=== PATIENT | female | born 1990 | race African-American/Black ===

== ENCOUNTER 2018-10-21 18:06 | Emergency (ER) | payer OTHER ==
--- OUTSIDE RECORDS SUMMARY | 2018-10-21 18:35 | XMS REPORT | Continuity of Care Document ---
:1990 External Reference #:[id number] Author Name Lucinda Blanco FNP Address [address] [place] [id number] Care Team Providers Name Role Phone Lucinda Blanco CHILD CARE ASSISTANT - Nurse Care Team Information Life Skills Consultant Practitioner Problems Active Problems Provider Date Intrinsic asthma without status Teresa Alberts, CHILD CARE ASSISTANT Onset: 06/29/2012 asthmaticus Hyperlipidemia Laurie Henderson [facility] Onset: 11/29/2011 Obesity Erlinda Llamas M.D. 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/2014 Note: Triage: 05/11/16 - Fyi Missed Appt's S/P adrenal adenoma resection 06/02 Social History Type Date Description Comments Sex Unknown Tobacco Use Start: Unknown Never Smoked Cigarettes ETOH Use Occasionally consumes alcohol Tobacco Use Start: Unknown Patient has never smoked Recreational Drug Use Denies Drug Use Smoking Status Reviewed: 09/26/18 Patient has never smoked Allergies, Adverse Reactions, Alerts Active Allergies Reaction Severity Comments Date Amoxicillin Medications Active Medications SIG Qnty Indications Ordering Date Provider Symbicort 2 puffs inhaled 6.900gm J45.909 Guy Daniel MD 03/26/2018 twice a day as 80-4.5mcg/Act directed Aerosol Ventolin HFA 2 puffs by mouth 18gm Catrachita Michelle, 06/29/2017 every 4 hours as PNP-BC, EMERGENCY MEDICAL TECHNICIAN BASIC, 108(90Base) mcg/Act needed Ibclc Aerosol Albuterol Sulfate nebulized every 6 Unknown hours as needed (2.5mg/3ML) 0.083% Nebulizer History Medications Doxycycline Hyclate 1 tab ( or 20tabs J01.90 Lucinda Blanco, 2018 - capsule ) by [facility] 09/11/2018 100mg Tablets mouth twice a day Loratadine 1 by mouth 30tabs J01.90 Lucinda Blanco, 08/28/2018 - 10mg every day [facility] 09/11/2018 Tablets Medications Administered in Office Medication SIG Qnty Indications Ordering Provider Date PPD Injection Family Nurse 08/28/2018 PPD Injection Guy Daniel MD 03/07/2018 Immunizations CPT Code Status Date Vaccine Lot # [id number] Given 05/01/2018 MMR Vaccine, Live, For Subcutaneous Use [id number] 06100 Given 04/03/2018 MMR Vaccine, Live, For Subcutaneous Use [id number] 89681 Given 03/07/2018 Influenza Virus Vaccine, Quadrivalent, 36 Mos+, [id number] .[id number] 32196 Given 11/27/2015 Tdap injection [id number] 84595 Given 11/27/2015 Influenza Virus Vaccine, Quadrivalent, 36 Mos+, [id number] .5ML 48374 Given 12/21/2012 flu vaccination 98297 Given 11/17/2010 flu vaccination 58310 Given 11/03/2008 flu vaccination 29854 Given 10/18/2007 Tdap injection 75843 Given 10/18/2007 Meningococcal Conjugate Vaccine Serogroups For Intramuscular Use 04769 Given 04/19/2007 Gardasil 54601 Given 12/18/2006 flu vaccination 64580 Given 12/18/2006 Gardasil 00251 Given 10/16/2006 Gardasil 25613 Given 01/17/2005 flu vaccination 31288 Given 05/20/2004 Hepatitis B Vaccine Pediatric/Adolescent 17835 Given 05/20/2004 Tetnus Injection 23247 Given 12/22/2003 Hepatitis B Vaccine Pediatric/Adolescent 51637 Given 10/13/2003 Hepatitis B Vaccine Pediatric/Adolescent Vital Signs Date Vital Result Comment 09/26/2018 8:15am BP Systolic Sitting Left Arm 113 mmHg BP Diastolic Sitting Left Arm 78 mmHg Body Temperature 97.9 F Heart Rate 75 /min Respiratory Rate 16 /min Height 63 inches 5'3" Weight 235.00 lb BMI (Body Mass Index) 41.6 kg/m2 BSA (Body Surface Area) 2.07 m2 [place] body weight in kilograms 52 kg 09/11/2018 4:27pm BP Systolic 122 mmHg BP Diastolic 88 mmHg Body Temperature 96.9 F Heart Rate 64 /min Respiratory Rate 16 /min Height 62 inches 5'2" Weight 235.25 lb BMI (Body Mass Index) 43.0 kg/m2 BSA (Body Surface Area) 2.05 m2 [place] body weight in kilograms 50 kg O2 % BldC Oximetry 99 % Results Description No Information Available Procedures Description No Information Available Medical Devices Description No Information Available Encounters Type Date Location Provider Dx Diagnosis Office Visit 09/26/2018 [facility] Francis Z01.419 Encntr for rail specialist exam 8:15a [address] Lucinda (general) (routine) EMERGENCY MEDICAL TECHNICIAN BASIC w/o abn findings Office Visit 09/11/2018 [facility] Guy Daniel MD R59.0 Localized enlarged 4:15p [address] lymph nodes Office Visit 08/28/2018 [facility] Francis J01.90 Acute sinusitis, 10:00a [address] [address] Lucinda, unspecified EMERGENCY MEDICAL TECHNICIAN BASIC Assessments Date Code Description Provider 09/26/2018 Z01.419 Encounter for gynecological examination Lucinda Blanco FNP (general) (routine) without abnormal findings 09/11/2018 R59.0 Localized enlarged lymph nodes Guy Daniel MD 08/28/2018 J01.90 Acute sinusitis, unspecified Lucinda Blanco FNP 05/01/2018 Z23 Encounter for immunization Jelena Hopkins MD 05/01/2018 Z23 Encounter for immunization Family Nurse 04/03/2018 Z23 Encounter for immunization Jelena Hopkins MD 04/03/2018 Z23 Encounter for immunization Family Nurse Plan of Treatment Future Appointment(s):10/23/2018 9:15 am - [facility] at [facility]09/26/2018 - Lucinda Blanco FNPZ01.419 Encounter for gynecological examination (general) (routine) without abnormal findingsNew Labs: Cytopathology Cervix/Vagina, Ordered: 09/26/18Follow up:nurse visit flu shot in fall yearly physical exams - next due 03/2019 Functional Status Functional Condition Comment Date Status Glasses Active Contacts Active Mental Status Description No Information Available Referrals Description No Information Available
--- OUTSIDE RECORDS SUMMARY | 2018-10-21 18:35 | XMS REPORT | Continuity of Care Document ---
:1990 External Reference #:[id number] Author Name Guy Daniel MD Address [address] [place] [id number] Care Team Providers Name Role Phone Lucinda Blanco NP - Nurse Care Team Information Fur Scraper [phone] Practitioner Problems Active Problems Provider Date Intrinsic asthma without status Teresa Alberts, TELECOMMUNICATIONS SALES REPRESENTATIVE Onset: 06/29/2012 asthmaticus Hyperlipidemia Laurie Henderson, [facility] Onset: 11/29/2011 Obesity Erlinda Llamas M.D. Onset: 11/17/2010 Adrenal [place]'s syndrome Erlinda Llamas M.D. Onset: 06/13/2014 Note: Triage: 05/11/16 - Fyi Missed Appt's S/P adrenal adenoma resection 06/02 Social History Type Date Description Comments Sex Unknown Tobacco Use Start: Unknown Never Smoked Cigarettes ETOH Use Occasionally consumes alcohol Tobacco Use Start: Unknown Patient has never smoked Recreational Drug Use Denies Drug Use Smoking Status Reviewed: 09/27/18 Patient has never smoked Allergies, Adverse Reactions, Alerts Active Allergies Reaction Severity Comments Date Amoxicillin Medications Active Medications SIG Qnty Indications Ordering Date Provider Symbicort 2 puffs inhaled 6.900gm J45.909 Guy Daniel MD 03/26/2018 twice a day as 80-4.5mcg/Act directed Aerosol Ventolin HFA 2 puffs by mouth 18gm Catrachita Michelle, 06/29/2017 every 4 hours as PNP-BC, RETAIL WAREHOUSE SUPERVISOR, 108(90Base) mcg/Act needed Ibclc Aerosol Albuterol Sulfate nebulized every 6 Unknown hours as needed (2.5mg/3ML) 0.083% Nebulizer History Medications Doxycycline Hyclate 1 tab ( or 20tabs J01.90 Lucinda Blanco, 2018 - capsule ) by [employer] SUPERVIS[employer] 09/11/2018 100mg Tablets mouth twice a day Loratadine 1 by mouth 30tabs J01.90 Lucinda Blanco, 08/28/2018 - 10mg every day [facility] 09/11/2018 Tablets Medications Administered in Office Medication SIG Qnty Indications Ordering Provider Date PPD Injection Family Nurse 08/28/2018 PPD Injection Guy Daniel MD 03/07/2018 Immunizations CPT Code Status Date Vaccine Lot # [id number] Given 05/01/2018 MMR Vaccine, Live, For Subcutaneous Use [id number] 73817 Given 04/03/2018 MMR Vaccine, Live, For Subcutaneous Use [id number] 87444 Given 03/07/2018 Influenza Virus Vaccine, Quadrivalent, 36 Mos+, [id number] .5ML 82033 Given 11/27/2015 Tdap injection [id number] 57773 Given 11/27/2015 Influenza Virus Vaccine, Quadrivalent, 36 Mos+, [id number] .5ML 96123 Given 12/21/2012 flu vaccination 06336 Given 11/17/2010 flu vaccination 62360 Given 11/03/2008 flu vaccination 46443 Given 10/18/2007 Tdap injection 61726 Given 10/18/2007 Meningococcal Conjugate Vaccine Serogroups For Intramuscular Use 74112 Given 04/19/2007 Gardasil 98955 Given 12/18/2006 flu vaccination 44284 Given 12/18/2006 Gardasil 30709 Given 10/16/2006 Gardasil 90227 Given 01/17/2005 flu vaccination 26970 Given 05/20/2004 Hepatitis B Vaccine Pediatric/Adolescent 73283 Given 05/20/2004 Tetnus Injection 88647 Given 12/22/2003 Hepatitis B Vaccine Pediatric/Adolescent 35806 Given 10/13/2003 Hepatitis B Vaccine Pediatric/Adolescent Vital Signs Date Vital Result Comment 09/27/2018 2:28pm BP Systolic 108 mmHg BP Diastolic 68 mmHg Body Temperature 98.1 F Heart Rate 81 /min Respiratory Rate 18 /min Height 63 inches 5'3" Weight 233.38 lb BMI (Body Mass Index) 41.3 kg/m2 BSA (Body Surface Area) 2.06 m2 [place] body weight in kilograms 52 kg O2 % BldC Oximetry 98 % Ra 09/26/2018 8:15am BP Systolic Sitting Left Arm 113 mmHg BP Diastolic Sitting Left Arm 78 mmHg Body Temperature 97.9 F Heart Rate 75 /min Respiratory Rate 16 /min Height 63 inches 5'3" Weight 235.00 lb BMI (Body Mass Index) 41.6 kg/m2 BSA (Body Surface Area) 2.07 m2 [place] body weight in kilograms 52 kg Results Description No Information Available Procedures Description No Information Available Medical Devices Description No Information Available Encounters Type Date Location Provider Dx Diagnosis Office Visit 09/27/2018 [facility] Guy Daniel MD R59.0 Localized enlarged 2:30p [facility] lymph nodes Office Visit 09/26/2018 [facility] Francis Z01.419 Encntr for fur glazer exam 8:[address]a [place] KRISTEN Jane (general) (routine) RETAIL WAREHOUSE SUPERVISOR w/o abn findings Office Visit 09/11/2018 [facility] Guy Daniel MD R59.0 Localized enlarged 4:15p [facility] lymph nodes Office Visit 08/28/2018 [facility] Francis J01.90 Acute sinusitis, 10:00a [place] KRISTEN Jane, unspecified RETAIL WAREHOUSE SUPERVISOR Assessments Date Code Description Provider 09/27/2018 R59.0 Localized enlarged lymph nodes Guy Daniel MD 09/26/2018 Z01.419 Encounter for gynecological examination Lucinda [...] Appointment(s):10/23/2018 9:15 am - Family Nurse at [facility]09/27/2018 - Guy Daniel MDR59.0 Localized enlarged lymph nodes Functional Status Functional Condition Comment Date Status Glasses Active Contacts Active Mental Status Description No Information Available Referrals Description No Information Available
[2018-10-21 18:42] VITALS: BP 139/67
--- NOTE | 2018-10-21 18:52 | UC ---
Respiratory Complaint HPI - HPI Summary HPI Summary: Patient is 28 year old female, who present today to the urgent care with r respiratory symptoms for past 3 days. She has a past medical history of asthma and takes Symbicort and has tried nebulizer/inhaler at home without much relief. She reports having wheezing and difficulty with breathing. Started to have cough which is minimally productive and feels that she is finding it difficult to move air. Denies any sore throat or difficulty swallowing. Unsure of any sick contacts but she works in a [employer] might of contact with someone who is sick. Denies any fever, chills, chest pain. Or shortness of breath .Denies any abdominal pain , nausea or vomiting , diarrhea or constipation. - History of Current Complaint Chief Complaint: UCRespiratory Stated Complaint: UPPER RESPIRATORY COMPLAINT Time Seen by Provider: 10/21/18 18:35 Hx Obtained From: Patient Hx Last Menstrual Period: 10/09/18 ?: No Pain Intensity: 0 - Allergies/Home Medications Allergies/Adverse Reactions: Allergies Allergy/AdvReac Type Severity Reaction Status Date / Time amoxicillin Allergy Hives Verified 10/21/18 18:42 Home Medications: Home Medications Budesonide/Formote 160/4.5(NF) [Symbicort 160/4.5 (NF)] 2 puff INH BID 10/21/18 [History Confirmed 10/21/18] PMH/Surg Hx/FS Hx/Imm Hx - Additional Past Medical History Additional PMH: Past Medical History : Rapid heart rate, asthma, allergies, [place] Past Surgical History: Right Ankle two screw in tibia, 2003, [place] Adenoidectomy, 2000, [facility] Adrenal tumor removed 06/11/12 lymph node bx in groin 09/2018 Family History : non contributory Social History : Occasional alcohol and marijuana, non smoker Previously Healthy: Yes - Surgical History Surgical History: Yes Surgery Procedure, Year, and Place: Right Ankle two screw in tibia, 2003, [place]. Adenoidectomy, 2000, [facility]. 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 lymph node bx in groin 09/2018 - Family History Known Family History: Positive: Non-Contributory - Social History Alcohol Use: Occasionally Alcohol Amount: weekends Substance Use Type: Marijuana Substance Use Comment - Amount & Last Used: weekends Smoking Status (MU): Never Smoked Tobacco Review of Systems All Other Systems Reviewed And Are Negative: Yes Constitutional: Positive: Fatigue Skin: Positive: Negative Eyes: Positive: Negative ENT: Positive: Negative. Negative: Sore Throat, Sinus Congestion, Sinus Pain/ Tenderness Respiratory: Positive: Shortness Of Breath, Cough - Minimally productive Cardiovascular: Positive: Negative. Negative: Chest Pain Gastrointestinal: Positive: Negative Genitourinary: Positive: Negative Motor: Positive: Negative Neurovascular: Positive: Negative Musculoskeletal: Positive: Negative Neurological: Positive: Negative Psychological: Positive: Negative Is Patient Immunocompromised?: No Physical Exam Triage Information Reviewed: Yes Appearance: Well-Appearing, No Pain Distress Vital Signs: Initial Vital Signs Temp 98.1 F 10/21/18 18:36 Pulse 85 10/21/18 18:36 Resp 16 10/21/18 18:36 BP 139/67 10/21/18 18:36 Pulse Ox 100 10/21/18 18:36 Vital Signs Reviewed: Yes Eyes: Positive: Conjunctiva Clear ENT Exam: Normal ENT: Positive: Normal ENT inspection, Hearing grossly normal, Pharynx normal. Negative: Pharyngeal erythema Neck exam: Normal Neck: Positive: Supple, No Lymphadenopathy Respiratory: Positive: Decreased breath sounds - in bilateral lower lung santos , Rhonchi. Negative: Crackles, Wheezing Cardiovascular Exam: Normal Cardiovascular: Positive: RRR, No Murmur Abdominal Exam: Normal Abdomen Description: Positive: Nontender. Negative: Distended, Guarding Bowel Sounds: Positive: Present Musculoskeletal Exam: Normal Musculoskeletal: Positive: Strength Intact Neurological Exam: Normal Neurological: Positive: Alert Psychological Exam: Normal Skin Exam: Normal Skin: Negative: Rashes Respiratory Course/Dx - Course Course Of Treatment: During the visit, we discussed findings. Suspect atypical pneumonia. She was given one dose of azithromycin and prednisone here. She has nebulizer at home that she will use as needed. She will follow up with PMD and expressed understanding . - Differential Dx/Diagnosis Provider Diagnosis: Atypical pneumonia Discharge ED - Sign-Out/Discharge Documenting (check all that apply): Patient Departure All imaging exams completed and their final reports reviewed: No Studies - Discharge Plan Condition: Stable Disposition: HOME Prescriptions: Azithromycin TAB* [Zithromax TAB (Z-KAMERON) 250 mg #6 tabs] 250 mg PO DAILY 4 Days #4 tab predniSONE [Prednisone 20 MG TAB] 60 mg PO DAILY 4 Days #12 tablet Patient Education Materials: Acute Bronchitis (ED), Pneumonia (ED) Referrals: Lakisha Blanco NP [Primary Care Provider] - Additional Instructions: Please start taking the medication as prescribed to the pharmacy . Continue nebulizer at home as needed Follow up with your primary care doctor in 1 week Patients blood pressure slightly high in Urgent care today , plan follow up with PCP for better control Return to Urgent care / ER if symptoms get worse. - Billing Disposition and Condition Condition: STABLE Disposition: Home
[2018-10-21] MEDS ORDERED: predniSONE TAB* 20 MG PO ONE (18:58)
[2018-10-21] MEDS ORDERED: Azithromycin TAB* 250 MG PO ONE (18:58)
== END 2018-10-21 19:13 | disposition home or self-care (01) ==
LOC: UCCORT 18:06
DX: J18.9 Pneumonia, unspecified organism (principal); Z88.0 Allergy status to penicillin
CPT/HCPCS: 99212; A9270-GY; G0463; J7512

== ENCOUNTER 2019-02-12 16:14 | Emergency (ER) | payer OTHER ==
--- OUTSIDE RECORDS SUMMARY | 2019-02-12 16:20 | XMS REPORT | Continuity of Care Document ---
:1990 External Reference #:[id number] Author Name Lucinda Blanco FNP Address [address] [place] [address] Care Team Providers Name Role Phone Lucinda Blanco HEAVY TRUCK DRIVER - Nurse Care Team Information Able Bodied Tankerman Practitioner Problems Active Problems Provider Date Intrinsic asthma without status Teresa Alberts, HEAVY TRUCK DRIVER Onset: 06/29/2012 asthmaticus Hyperlipidemia Laurie Henderson, [facility] Onset: 11/29/2011 Obesity Erlinda Llamas M.D. Onset: 11/17/2010 Adrenal [place]'s syndrome Erlinda Llamas M.D. Onset: 06/13/2014 Note: Triage: 05/11/16 - Fyi Missed Appt's S/P adrenal adenoma resection 06/02 Social History Type Date Description Comments Sex Unknown Tobacco Use Start: Unknown Never Smoked Cigarettes ETOH Use Occasionally consumes alcohol Tobacco Use Start: Unknown Patient has never smoked Recreational Drug Use Denies Drug Use Smoking Status Reviewed: 01/02/19 Patient has never smoked Allergies, Adverse Reactions, Alerts Active Allergies Reaction Severity Comments Date Amoxicillin Medications Active Medications SIG Qnty Indications Ordering Date Provider Loestrin 03/11 (21) 1 by mouth every 28tabs Z30.011 Francis, 01/02/2019 day Jenniferleigh, 1-20mg-mcg Tablets SAND POLISHER Albuterol Sulfate Inhale 2 Puffs By 18units Francis, 12/05/2018 HFA Mouth Every 4 Jenniferleigh, 108(90Base) Hours as Needed SAND POLISHER mcg/Act Aerosol Symbicort Inhale 2 Puffs By 6.900gm J45.909 Guy Daniel MD 03/26/2018 Mouth Twice Daily 80-4.5mcg/Act as Directed Aerosol Albuterol Sulfate nebulized every 6 Unknown hours as needed (2.5mg/3ML) 0.083% Nebulizer History Medications Doxycycline Hyclate 1 tab ( or 20tabs J01.90 Lucinda Blanco, 2018 - capsule ) by [employer] 09/11/2018 100mg Tablets mouth twice a day Loratadine 1 by mouth 30tabs J01.90 Lucinda Blanco, 08/28/2018 - 10mg every day [employer] 09/11/2018 Tablets Medications Administered in Office Medication SIG Qnty Indications Ordering Provider Date PPD Injection Family Nurse 08/28/2018 PPD Injection Guy Daniel MD 03/07/2018 Immunizations CPT Code Status Date Vaccine Lot # [id number] Given 05/01/2018 MMR Vaccine, Live, For Subcutaneous Use [id number] 61759 Given 04/03/2018 MMR Vaccine, Live, For Subcutaneous Use [id number] 78985 Given 03/07/2018 Influenza Virus Vaccine, Quadrivalent, 36 Mos+, [id number] .5ML 11980 Given 11/27/2015 Tdap injection [id number] 66809 Given 11/27/2015 Influenza Virus Vaccine, Quadrivalent, 36 Mos+, [id number] .5ML 78622 Given 12/21/2012 flu vaccination 18058 Given 11/17/2010 flu vaccination 22727 Given 11/03/2008 flu vaccination 01591 Given 10/18/2007 Tdap injection 39737 Given 10/18/2007 Meningococcal Conjugate Vaccine Serogroups For Intramuscular Use 22893 Given 04/19/2007 Gardasil 72923 Given 12/18/2006 flu vaccination 53413 Given 12/18/2006 Gardasil 99999 Given 10/16/2006 Gardasil 71439 Given 01/17/2005 flu vaccination 08362 Given 05/20/2004 Hepatitis B Vaccine Pediatric/Adolescent 55972 Given 05/20/2004 Tetnus Injection 63675 Given 12/22/2003 Hepatitis B Vaccine Pediatric/Adolescent 12621 Given 10/13/2003 Hepatitis B Vaccine Pediatric/Adolescent Vital Signs Date Vital Result Comment 01/02/2019 9:20am BP Systolic 110 mmHg BP Diastolic 60 mmHg Body Temperature 97.7 F Heart Rate 60 /min Respiratory Rate 18 /min Height 63 inches 5'3" Weight 231.00 lb BMI (Body Mass Index) 40.9 kg/m2 BSA (Body Surface Area) 2.06 m2 [place] body weight in kilograms 52 kg 09/27/2018 2:28pm BP Systolic 108 mmHg BP Diastolic 68 mmHg Body Temperature 98.1 F Heart Rate 81 /min Respiratory Rate 18 /min Height 63 inches 5'3" Weight 233.38 lb BMI (Body Mass Index) 41.3 kg/m2 BSA (Body Surface Area) 2.06 m2 [place] body weight in kilograms 52 kg O2 % BldC Oximetry 98 % Ra Results Test Acquired Date Facility Test Result H/L Range Note Urine Dipstick 01/02/2019 [facility] Ua Color YELLOW Yellow Ua Clarity CLEAR Clear Ua Leuko 70 [place]rie/uL High Negative Ua Nitrite negative Negative Ua Urobilinogen 0.2 0.2 - 1.0 E.U./dL Ua Protein negative Negative Ua PH 6.0 Low 6.5-7.5 Ua Blood 25 [place]/uL High Negative Ua Specific [place] 1.030 1.010-1.030 Ua Ketones negative Negative Ua Bilirubin negative Negative Ua Glucose negative Negative Urine HCG (Qualitative) 01/02/2019 [facility] Misc NEGATIVE Procedures Description No Information Available Medical Devices Description No Information Available Encounters Type Date Location Provider Dx Diagnosis Office Visit 09/27/2018 Family Guy Cheung MD R59.0 Localized enlarged 2:30p [address] lymph nodes Office Visit 09/26/2018 Family Mehdi Blanco Z01.419 Encntr for psychologist social exam 8:[address]a [place] KRISTEN Jane, (general) (routine) SAND POLISHER w/o abn findings Office Visit 09/11/2018 [facility] Guy Daniel MD R59.0 Localized enlarged 4:15p [address] lymph nodes Office Visit 08/28/2018 [facility] Francis J01.90 Acute sinusitis, 10:[address]a [place] KRISTEN Jane, unspecified SAND POLISHER Assessments Date Code Description Provider 01/02/2019 Z32.02 Encounter for test, result Lucinda Blanco FNP negative 01/02/2019 Z30.011 Encounter for initial prescription of Lucinda Blanco FNP contraceptive pills 01/02/2019 Z23 Encounter for immunization Lucinda Blanco FNP 09/27/2018 R59.0 Localized enlarged lymph nodes Guy Daniel MD 09/26/2018 Z01.419 Encounter for gynecological examination Francis DAR Jane (general) (routine) without abnormal findings 09/11/2018 R59.0 Localized enlarged lymph nodes Guy Daniel MD 08/28/2018 J01.90 Acute sinusitis, unspecified Lucinda Blanco FNP Plan of Treatment 01/02/2019 - BrainLakisha wooDAR morganZ32.02 Encounter for test, result negativeComments:Discussed tracking periods on phone appsFollow up:As needed and for yearly physical exams (due 09/2019)Z30.011 Encounter for initial prescription of contraceptive pillsNew Medication:Loestrin 03/11 (21) 1-20 mg- mcg - 1 by mouth every dayComments:Discussed various control options including 28 day pills, 84 day, patches, IUD, Nexplanon and condoms and emergency contraception (Plan B). I encourage you to always use condoms to prevent the spread of HIV and other sexually transmitted infections. Instructed on how to start pills, what to doif any pills are missed - 1 day take two pills the next day, if 2 days are missed, then take 2 pillson next day and 2 pills on day after that - miss 3 days throw out pack and re-start pills on Monday after period. Certain medications (antibiotics) can reduce the effectiveness of control and you should use back up form of contraception whenever you are on antibiotics.Z23 Encounter for immunizationComments:yearly influenza immunization given today Functional Status Functional Condition Comment Date Status Glasses Active Contacts Active Mental Status Description No Information Available Referrals Refer to Reason for Referral Status Appt Date Tito Wetzel MD Closed [address], [address] [place] [id number] [phone]
[2019-02-12 16:34] VITALS: BP 128/82
[2019-02-12] MEDS ORDERED: Albuterol/Ipratropium NEB.SOL* Albuterol 2.5 MG/Ipratropium 0.5 MG 3 ML INH ONE (16:41)
[2019-02-12] MEDS ORDERED: predniSONE TAB* 20 MG PO ONE ×2 (16:43→16:44)
--- NOTE | 2019-02-12 16:54 | UC ---
Respiratory Complaint HPI - HPI Summary HPI Summary: Onset 4 days ago with a slight cough. Using albuterol neb treatments with some relief. Cough and chest congestion are worse last few days. No fever she is aware of. [ End ] - History of Current Complaint Chief Complaint: UCRespiratory Stated Complaint: COUGH Time Seen by Provider: 02/12/19 16:21 Hx Obtained From: Patient Hx Last Menstrual Period: 01/21/19 ?: No Onset/Duration: Sudden Onset Timing: Constant Severity Initially: Mild Severity Currently: Moderate Pain Intensity: 0 Character: Cough: Nonproductive Aggravating Factors: Exertion, Deep Breaths, Recumbent Position Alleviating Factors: Nothing Associated Signs And Symptoms: Positive: Dyspnea, Wheezing - Allergies/Home Medications Allergies/Adverse Reactions: Allergies Allergy/AdvReac Type Severity Reaction Status Date / Time amoxicillin Allergy Hives Verified 02/12/19 16:23 Home Medications: Home Medications Norethindrone-E.estradiol-Iron [Junel Fe 24 Tablet] 1 each PO DAILY 02/12/19 [ History Confirmed 02/12/19] PMH/Surg Hx/FS Hx/Imm Hx Previously Healthy: Yes - Surgical History Surgical History: Yes Surgery Procedure, Year, and Place: Right Ankle two screw in tibia, 2003, [place]. Adenoidectomy, 2000, [facility]. 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 lymph node bx in groin 09/2018. , 2016 - Family History Known Family History: Positive: Hypertension - Social History Alcohol Use: Occasionally Alcohol Amount: weekends Substance Use Type: Marijuana Substance Use Comment - Amount & Last Used: weekends Smoking Status (MU): Never Smoked Tobacco Review of Systems All Other Systems Reviewed And Are Negative: Yes Respiratory: Positive: Shortness Of Breath, Cough Is Patient Immunocompromised?: No Physical Exam Triage Information Reviewed: Yes Appearance: Well-Appearing, Well-Nourished, Pain Distress Vital Signs: Initial Vital Signs Temp 97.2 F 02/12/19 16:24 Pulse 92 02/12/19 16:24 Resp 16 02/12/19 16:24 BP 128/82 02/12/19 16:24 Pulse Ox 99 02/12/19 16:24 Vital Signs Reviewed: Yes Eye Exam: Normal ENT Exam: Normal Dental Exam: Normal Neck exam: Normal Respiratory: Positive: Respiratory distress - mild, Wheezing, Inspiration, Other : - dyspnea with deep breaths Respiratory Course/Dx - Course Course Of Treatment: hx obtained, exam performed ,meds reviewed, neb treatment and prednisone given, - Differential Dx/Diagnosis Differential Diagnosis/HQI/PQRI: Asthma, Bronchitis Provider Diagnosis: Asthma exacerbation, mild Discharge ED - Sign-Out/Discharge Documenting (check all that apply): Patient Departure All imaging exams completed and their final reports reviewed: No Studies - Discharge Plan Condition: Stable Disposition: HOME Patient Education Materials: Wheezing (ED) Referrals: Lakisha Blanco NP [Primary Care Provider] - Additional Instructions: 1. take the prednisone as prescribed. 2. continue with your nebulizer and follow up if breathing worsens - Billing Disposition and Condition Condition: STABLE Disposition: Home
== END 2019-02-12 17:11 | disposition home or self-care (01) ==
LOC: UCCORT 16:14
DX: J45.901 Unspecified asthma with (acute) exacerbation (principal); Z88.0 Allergy status to penicillin
CPT/HCPCS: 99213; A9270-GY; G0463; J7512